=== PATIENT | female | born 1975 | race Caucasian/White ===

== ENCOUNTER 2018-03-27 01:49 | Emergency (ER) | END 2018-03-27 05:51 | disposition home or self-care (01) ==

== ENCOUNTER 2019-05-16 07:37 | Emergency (ER) | payer SELFPAY ==
[~2019-05-16] VITALS: Ht 152.4 cm; Wt 54.0 kg
[~2019-05-16 07:37] MED LIST: ALBU8.5H8 INH; AZIT250T PO; CETI10CA PO; CYCL10TA7 PO; GUAI473L22 PO; HYDR-4011 PO; IBUP-1542 PO; IBUP800T48 PO
[2019-05-16 07:41] VITALS: BP 109/56; PULSE 91; RESP 17; Ht 152.4 cm; Wt 54.0 kg
[2019-05-16] MEDS ORDERED: KETOROLAC 30 MG INJ IM STA (08:02)
--- NOTE | 2019-05-16 08:20 | ERD ---
ER Documentation Chief Complaint Chief Complaint BACK PAIN X1 DAY, NO INJURY, NON-RADIATING HPI 43-year-old female is here with lower back pain that is bilateral but began yesterday. Denies any injury or trauma. It does not radiate. It is moderate in severity throbbing in nature. She tried taking Tylenol at home but it did not help. No fever. No nausea or vomiting. No dysuria hematuria or frequency. ROS All systems reviewed and are negative except as per history of present illness. Medications Home Meds Active Scripts Albuterol Sulfate* (Proair HFA*) 8.5 Gm Hfa.aer.ad, 2 PUFF INH Q4H PRN for WHEEZING AND SOB, #1 INHALER Prov:SANJUANITA BREWSTER NP 03/27/18 Ibuprofen* (Motrin*) 600 Mg Tab, 600 MG PO Q6H PRN for PAIN AND OR ELEVATED TEM P, #30 TAB Prov:SANJUANITA BREWSTER NP 03/27/18 Cetirizine Hcl* (Zyrtec*) 10 Mg Capsule, 10 MG PO DAILY, #30 TAB.CHEW Prov:SANJUANITA BREWSTER NP 03/27/18 Guaifenesin-Codeine Phosphate* (Guaifenesin* AC Cough Syrup) 473 Ml Liquid, 5 ML PO Q4H PRN for COUGH, #60 ML Prov:SANJUANITA BREWSTER NP 03/27/18 Azithromycin* (Zithromax*) 250 Mg Tablet, 250 MG PO .ZPACK DIRECTED, #6 TAB TAKE 500 MG (2 TABS) THE FIRST DAY THEN 250 MG (1 TAB) DAYS 2-5 Prov:SANJUANITA BREWSTER NP 03/27/18 Reported Medications [none] Unknown Strength No Conflict Check 03/27/18 Allergies Allergies: Coded Allergies: ciprofloxacin (Verified Allergy, Unknown, facial swelling, 05/16/19) PMhx/Soc Medical and Surgical Hx: pt denies Medical Hx History of Surgery: Yes () Anesthesia Reaction: No Hx Neurological Disorder: No Hx Respiratory Disorders: No Hx Cardiac Disorders: No Hx Psychiatric Problems: No Hx Miscellaneous Medical Probl: No Hx Alcohol Use: No Hx Substance Use: No Hx Tobacco Use: Yes Smoking Status: Current some day smoker FmHx Family History: No diabetes Physical Exam Vitals Vital Signs Date Temp Pulse Resp B/P (MAP) Pulse Ox O2 O2 Flow FiO2 Time Delivery Rate 05/16/19 98.2 91 17 109/56 98 07:41 (73) Physical Exam Const: No acute distress Head: Atraumatic Eyes: Normal Conjunctiva ENT: Normal External Ears, Nose and Mouth. Neck: Full range of motion. No meningismus. Resp: Clear to auscultation bilaterally Cardio: Regular rate and rhythm, no murmurs Abd: Soft, non tender, non distended. Normal bowel sounds Back Exam: Compartments: Soft Motor: Normal flexion and extension of bilateral hip/knee/ankle/foot Sensation: Intact to light touch throughout Bones: No midline TTP Results 24 hrs Laboratory Tests Test 05/16/19 08:13 05/16/19 08:14 POC Beta HCG, Qualitative NEGATIVE Bedside Urine pH (LAB) 7.0 Bedside Urine Protein (LAB) Negative Bedside Urine Glucose (UA) Negative Bedside Urine Ketones (LAB) Negative Bedside Urine Blood Trace-intact Bedside Urine Nitrite (LAB) Negative Bedside Urine Leukocyte Esterase (L Negative Current Medications Medications Dose Sig/Nilsa Start Time Status Last (Trade) Ordered Route PRN Stop Time Admin Dose Reason Admin Ketorolac 30 mg ONCE STAT 05/16/19 DC 05/16/19 Tromethamine IM 08:02 05/16/19 08:14 (Toradol) 08:04 1 tab ONCE ONCE 05/16/19 05/16/19 Acetaminophen PO 08:30 05/16/19 08:15 / 08:31 Hydrocodone Bitart ([place] (5/325)) Procedures/MDM The differential diagnosis includes but is not limited to muscle strain, ligament strain, contusion, arthritis, discogenetic disease, non- musculoskeletal, cauda equina syndrome, cord compression, abscess and others. No bowel or bladder incontinence or saddle anesthesia. Urine negative for infection or . Toradol and [place] given. Likely musculoskeletal pain. Discharged with ibuprofen Flexeril and a small amount of [place] for pain. Patient counseled regarding my diagnostic impression and care plan. Prior to discharge all questions answered. Pt agrees with treatment plan and understands strict return precautions. Pt is instructed to follow up with primary care provider within 24-48 hours. Precautionary instructions provided including instructions to return to the ER if not improving or for any worsening or changing symptoms or concerns. Departure Diagnosis: Primary Impression: Back pain Condition: Stable JACK PONCE PA-C May 16, 2019 08:19
[2019-05-16] MEDS ORDERED: HYDROCODONE/APAP (5/325) TAB PO ONE (08:30)
== END 2019-05-16 08:29 | disposition home or self-care (01) ==
LOC: FTE 07:37
DX: M54.9 Dorsalgia, unspecified (principal); F17.210 Nicotine dependence, cigarettes, uncomplicated
CPT/HCPCS: 81003; 81025; 96372; 99284; J1885